=== PATIENT | male | born 1940 | race Caucasian/White ===

== ENCOUNTER 2017-05-16 08:30 | Outpatient (CLI) | payer MEDICARE ==
[2017-05-16 09:54] LABS: ALT (SGPT) 24 U/L (8-55); AST (SGOT) 23 U/L (5-34); Alkaline Phosphatase 33 U/L (40-150); Anion Gap 15 mmol/L (10-20); BUN (Urea Nitrogen) 27 mg/dL (8.4-25.7); Bilirubin, Total 0.8 mg/dL (0.2-1.2); Calc. Creatinine Clearance 0 mL/min (70-130); Calcium 10.1 mg/dL (7.8-10.44); Carbon Dioxide 25 mmol/L (23-31); Cardiac Risk 6.4 (Less than 4.5); Chloride 100 mmol/L (98-107); Cholesterol 161 mg/dl (< 200 Desired); Estimated GFR-MDRD 46; Globulin 3.1 g/dL (2.4-3.5); Glucose 260 mg/dL (83-110); HDL Cholesterol 25 mg/dL (>60 Neg Risk); LDL Cholesterol, Calculated 65 mg/dL; Potassium 4.6 mmol/L (3.5-5.1); Protein, Total 7.1 g/dL (5.8-8.1); Sodium 135 mmol/L (136-145); Triglycerides 353 mg/dL (Less than 150)
== END 2017-05-16 08:31 | disposition home or self-care (01) ==
LOC: BURLAB 08:30
PROVIDERS: ATTEND Internal Medicine Cardiovascular Disease
DX: E78.00 Pure hypercholesterolemia, unspecified (principal)
CPT/HCPCS: 36415; 80053; 80061